=== PATIENT | female | born 1980 | race Caucasian/White ===

== ENCOUNTER 2016-09-30 17:10 | Emergency (ER) | payer SELFPAY | END 2016-09-30 20:00 | disposition left against medical advice (07) | LOC: ER 20:00 | DX: R05 Cough (principal); R06.02 Shortness of breath ==

== ENCOUNTER 2019-06-05 08:41 | Emergency (ER) | payer MEDICARE ==
[~2019-06-05] VITALS: Ht 175.3 cm; Wt 127.0 kg
[2019-06-05 09:00] VITALS: BP 160/100
[2019-06-05 09:29] LABS: BILIRUBIN,URINE NEGATIVE (NEG); CLARITY,URINE CLEAR; COLOR,URINE YELLOW; NITRITE,URINE NEGATIVE (NEG); PH,URINE 5.5; PROTEIN,URINE NEGATIVE (NEG-TRACE); UROBILINOGEN,URINE 0.2 mg/dL (0.2 mg/dL)
[2019-06-05 09:35] LABS: BACTERIA,URINE FEW /HPF (0-FEW); SQUAMOUS EPITHELIAL CELL,UR MOD /LPF; TRICHOMONAS,URINE PRESENT
[2019-06-05] MEDS ORDERED: METR500T PO (10:09)
[2019-06-05] MEDS ORDERED: CIPR250T30 PO (10:09)
--- NOTE | 2019-06-05 10:09 | PHYS DOC ---
Past Medical History Past Medical History: No Pertinent History Past Surgical History: Cholecystectomy Alcohol Use: Rarely Drug Use: None Adult General Chief Complaint Chief Complaint: ABDOMINAL PAIN HPI HPI Patient is a 39 year old female who presents with complaining of vaginal discharge. Patient states she had vaginal discharge and itching 10 days ago and took [id number] vaginitis yeast infection medication for 3 days with improvement of her condition. Patient complaining of large amount of liquid vaginal discharge for the last 5 days without itching, abdominal pain, nausea vomiting, fever and chills, urinary symptom. Patient denies sexual partner or concern for STD. Review of Systems Review of Systems Constitutional: Denies fever or chills [] Eyes: Denies change in visual acuity, redness, or eye pain [] HENT: Denies nasal congestion or sore throat [] Respiratory: Denies cough or shortness of breath [] Cardiovascular: No additional information not addressed in HPI [] GI: Denies abdominal pain, nausea, vomiting, bloody stools or diarrhea [] : Denies dysuria or hematuria [] Musculoskeletal: Denies back pain or joint pain [] Integument: Denies rash or skin lesions [] Neurologic: Denies headache, focal weakness or sensory changes [] Endocrine: Denies polyuria or polydipsia [] All other systems were reviewed and found to be within normal limits, except as documented in this note. Allergies Allergies Allergies Coded Allergies Type Severity Reaction Last Updated Verified No Known Drug Allergies 06/05/19 No Physical Exam Physical Exam Constitutional: Well developed, well nourished, mild distress, non-toxic appearance. [] HENT: Normocephalic, atraumatic. Eyes: PERRLA, EOMI, conjunctiva normal, no discharge. [] Neck: Normal range of motion, no tenderness, supple, no stridor. [] Cardiovascular:Heart rate regular rhythm, no murmur [] Lungs & Thorax: Bilateral breath sounds clear to auscultation [] Abdomen: Bowel sounds normal, soft, no tenderness, no masses, no pulsatile masses. Vaginal exam in present of retail client solutions consultant showed normal external vagina, small to moderate amount of yellow discharge in without bleeding or adnexal tenderness. Skin: Warm, dry, no erythema, no rash. [] Back: No tenderness, no CVA tenderness. [] Extremities: No tenderness, no cyanosis, no clubbing, ROM intact, no edema. [] Neurologic: Alert and oriented X 3, no focal deficits noted. [] Psychologic: Affect normal, judgement normal, mood normal. [] Current Patient Data Vital Signs Vital Signs Date Time Temp Pulse Resp B/P (MAP) Pulse Ox O2 Delivery O2 Flow Rate FiO2 06/05/19 09:00 97.7 85 18 160/100 (120) 98 Room Air 97.7 Lab Values Laboratory Tests Test 06/05/19 08:50 06/05/19 08:58 Urine Color Yellow Urine Clarity Clear Urine pH 5.5 Urine Specific Upson 1.025 Urine Protein Negative mg/dL (NEG-TRACE) Urine Glucose (UA) Negative mg/dL (NEG) Urine Ketones (Stick) Negative mg/dL (NEG) Urine Blood Small (NEG) Urine Nitrite Negative (NEG) Urine Bilirubin Negative (NEG) Urine Urobilinogen Dipstick 0.2 mg/dL (0.2 mg/dL) Urine Leukocyte Esterase Moderate (NEG) Urine RBC 3-5 /HPF (0-2) Urine WBC 11-20 /HPF (0-4) Urine Squamous Epithelial Cells Mod /LPF Urine Bacteria Few /HPF (0-FEW) Urine Mucus Mod /LPF Urine Trichomonas Present POC Urine HCG, Qualitative Hcg negative (Negative) Microbiology 06/05/19 Wet Prep - Final, Complete EKG EKG [] Radiology/Procedures Radiology/Procedures [] Course & Med Decision Making Course & Med Decision Making Pertinent Labs reviewed. (See chart for details) Evaluation of patient in ER showed 39-year-old female patient with complaining of vaginal discharge without concern for STD. Patient had negative test. UA showed UTI and wet prep showed bacterial vaginitis. I've spoken with the patient and/or caregivers. I've explained the patient's condition, diagnosis and treatment plan based on information available to me at this time. I've answered the patient's and/or caregivers questions and addressed any concerns. The patient and/or caregivers have a good understanding the patient's diagnosis, condition and treatment plan as can be expected at this point. Vital signs have been stabilized. The patient's condition is stable for discharge from the emergency department. The patient will pursue further outpatient evaluation with her primary care provider or other designated consulting physician as outlined in the discharge instructions. Patient and/or caregivers are agreeable to this plan of care and follow-up instructions have been explained in detail. The patient and/or caregivers have received these instructions in written format and expressed understanding of these discharge instructions. The patient and her caregivers are aware that if any significant change in condition or worsening of symptoms should prompt him to immediately return to this of the closest emergency department. If an emergent department is not readily available I would encourage him to call 911. Taisha Disclaimer Dragon Disclaimer This electronic medical record was generated, in whole or in part, using a voice recognition dictation system. Departure Departure Impression: Primary Impression: Bacterial infection Additional Impressions: Urinary tract infection Morbid obesity with BMI of 40.0-44.9, adult Disposition: HOME, SELF-CARE (at [facility]) Condition: STABLE Referrals: NO PCP (PCP) Patient Instructions: Cervicitis, Urinary Tract Infection Additional Instructions: Drink plenty of liquids Follow-up with your primary care physician in 3-5 days Return to ER if not getting better Scripts Metronidazole (FLAGYL) 500 Mg Tablet 4 TAB PO ONCE, #4 TAB Prov: MICAH MILLAN MD 06/05/19 Ciprofloxacin Hcl (CIPRO) 250 Mg Tablet 1 TAB PO BID for infection, #14 TAB Prov: MICAH MILLAN MD 06/05/19 Problem Qualifiers Additional Impressions: Urinary tract infection Urinary tract infection type: acute cystitis Hematuria presence: without hematuria Qualified Codes: N30.00 - Acute cystitis without hematuria MICAH MILLAN MD Jun 05, 2019 10:09
[2019-06-06 17:14] LABS: GC PROBE Negative (Negative)
== END 2019-06-05 10:40 | disposition home or self-care (01) ==
LOC: ER 08:41
DX: N30.00 Acute cystitis without hematuria (principal); A49.9 Bacterial infection, unspecified; E66.01 Morbid (severe) obesity due to excess calories; Z68.41 Body mass index [BMI] 40.0-44.9, adult; Z90.49 Acquired absence of other specified parts of digestive tract
CPT/HCPCS: 81001; 81025; 87086; 87491; 87591; 99284; Q0111

== ENCOUNTER 2019-07-30 13:21 | Emergency (ER) | payer MEDICARE ==
[~2019-07-30] VITALS: Ht 175.3 cm; Wt 127.0 kg
[~2019-07-30 13:21] MED LIST: CIPR250T30 PO; METR500T PO
[2019-07-30 13:53] VITALS: BP 166/97
[2019-07-30] MEDS ORDERED: IV NORMAL SALINE 1000ML BAG 1,000 ML IV ONE (14:30)
[2019-07-30 14:33] LABS: BASO # 0.1 x10^3/uL (0.0-0.2); BASO % 1 % (0-3); EOS # 0.2 x10^3/uL (0.0-0.7); EOS % 1 % (0-3); HEMATOCRIT 44.7 % (36.0-47.0); HEMOGLOBIN 15.3 g/dL (12.0-15.5); LYMPH # 2.2 x10^3/uL (1.0-4.8); LYMPH % 12 % (24-48); MEAN CORPUSCULAR HEMOGLOBIN 31 pg (25-35); MEAN CORPUSCULAR HGB CONC 34 g/dL (31-37); MEAN CORPUSCULAR VOLUME 90 fL (79-100); MONO # 0.8 x10^3/uL (0.0-1.1); MONO % 5 % (0-9); NEUT # 14.4 x10^3/uL (1.8-7.7); NEUT % 81 % (31-73); PLATELET COUNT 223 x10^3/uL (140-400); RED BLOOD COUNT 4.95 x10^6/uL (3.50-5.40); RED CELL DISTRIBUTION WIDTH 12.7 % (11.5-14.5); WHITE BLOOD COUNT 17.7 x10^3/uL (4.0-11.0)
[2019-07-30 14:41] LABS: CREATININE 0.7 mg/dL (0.6-1.0); GFR 94.2; POTASSIUM 4.2 mmol/L (3.5-5.1)
[2019-07-30 14:50] LABS: ALBUMIN 3.9 g/dL (3.4-5.0); ALBUMIN/GLOBULIN RATIO 1.1 (1.0-1.7); TOTAL BILIRUBIN 0.5 mg/dL (0.2-1.0); TOTAL PROTEIN 7.4 g/dL (6.4-8.2)
[2019-07-30 14:52] LABS: % BANDS 1 % (0-9); % EOS 1 % (0-5); % LYMPHS 10 % (24-48); % MONOS 2 % (0-10); % SEGS 86 % (35-66); PLT ESTIMATE ADEQUATE (ADEQUATE)
[2019-07-30 14:53] LABS: TOXIC VACUOLATION SLIGHT
[2019-07-30] MEDS ORDERED: AMOX500T PO (16:07)
--- NOTE | 2019-07-30 16:08 | PHYS DOC ---
Past Medical History Past Medical History: No Pertinent History Past Surgical History: Cholecystectomy [place] Pack Per Day Alcohol Use: Rarely Drug Use: None Adult General Chief Complaint Chief Complaint: SORE THROAT [facility] HPI Patient is a 39 year old [ female who presents to the emergency department with complaints of body aches, fatigue, fever, and feeling lightheaded/dizzy with position changes for the last 5 days. Patient states that today she developed a sore throat. She denies any nausea, vomiting, or diarrhea in the last 24 hours but states that she did have nausea, vomiting, and diarrhea 3 days ago. Patient denies any shortness breath, wheezing, chest pain, palpitations, numbness, tingling, weakness, or vision changes. She does state that she has a headache that she describes as diffuse pressure. She currently rates her discomfort an 8 out of 10 on the pain scale she denies any alleviating factors. All other ROS is neg unless otherwise noted in HPI. Review of Systems Review of Systems See Above Current Medications Current Medications Current Medications Medications (Trade) Dose Ordered Sig/Nikita Start Time Stop Time Status Last Admin Dose Admin Sodium Chloride 1,000 ml @ 1,000 mls/hr 1X ONCE 07/30/19 14:30 07/30/19 15:29 DC 07/30/19 14:59 1,000 MLS/HR Allergies Allergies Allergies Coded Allergies Type Severity Reaction Last Updated Verified No Known Drug Allergies 06/05/19 No Physical Exam Physical Exam See Above Constitutional: Well developed, well nourished, no acute distress, non-toxic appearance obese. [] HENT: Normocephalic, atraumatic, bilateral external ears normal, bilateral TMs normal, 2+ tonsils bilaterally with exudate noted, moderate erythema posterior pharynx, oropharynx moist, nose normal. [] Eyes: PERRLA, EOMI, conjunctiva normal, no discharge. [] Neck: Normal range of motion, anterior cervical chain lymphadenopathy bilaterally with tenderness to palpation, no stridor. [] Cardiovascular:Heart rate regular rhythm, no murmur [] Lungs & Thorax: Bilateral breath sounds clear to auscultation, Respirations even and unlabored, no retractions, no respiratory distress [] Abdomen: Bowel sounds normal, soft, no tenderness, no masses, no pulsatile masses. [] Skin: Warm, dry, no erythema, no rash. [] Back: No CVA tenderness. [] Extremities: No cyanosis, ROM intact, no edema. [] Neurologic: Alert and oriented X 3, no focal deficits noted. [] Psychologic: Affect normal, judgement normal, mood normal. [] Current Patient Data Vital Signs Vital Signs Date Time Temp Pulse Resp B/P (MAP) Pulse Ox O2 Delivery O2 Flow Rate FiO2 07/30/19 13:53 98.5 98 20 166/97 (120) 100 Room Air 98.5 Lab Values Laboratory Tests Test 07/30/19 14:15 07/30/19 14:27 Group A Streptococcus Rapid Positive (NEGATIVE) White Blood Count 17.7 x10^3/uL (4.0-11.0) H Red Blood Count 4.95 x10^6/uL (3.50-5.40) Hemoglobin 15.3 g/dL (12.0-15.5) Hematocrit 44.7 % (36.0-47.0) Mean Corpuscular Volume 90 fL (79-100) Mean Corpuscular Hemoglobin 31 pg (25-35) Mean Corpuscular Hemoglobin Concent 34 g/dL (31-37) Red Cell Distribution Width 12.7 % (11.5-14.5) Platelet Count 223 x10^3/uL (140-400) Neutrophils (%) (Auto) 81 % (31-73) H Lymphocytes (%) (Auto) 12 % (24-48) L Monocytes (%) (Auto) 5 % (0-9) Eosinophils (%) (Auto) 1 % (0-3) Basophils (%) (Auto) 1 % (0-3) Neutrophils # (Auto) 14.4 x10^3/uL (1.8-7.7) H Lymphocytes # (Auto) 2.2 x10^3/uL (1.0-4.8) Monocytes # (Auto) 0.8 x10^3/uL (0.0-1.1) Eosinophils # (Auto) 0.2 x10^3/uL (0.0-0.7) Basophils # (Auto) 0.1 x10^3/uL (0.0-0.2) Segmented Neutrophils % 86 % (35-66) H Band Neutrophils % 1 % (0-9) Lymphocytes % 10 % (24-48) L Monocytes % 2 % (0-10) Eosinophils % 1 % (0-5) Toxic Vacuolation Slight Platelet Estimate Adequate (ADEQUATE) Large Platelets Occ Sodium Level 139 mmol/L (136-145) Potassium Level 4.2 mmol/L (3.5-5.1) Chloride Level 105 mmol/L (98-107) Carbon Dioxide Level 24 mmol/L (21-32) Anion Gap 10 (6-14) Blood Urea Nitrogen 12 mg/dL (7-20) Creatinine 0.7 mg/dL (0.6-1.0) Estimated GFR (Cockcroft-Gault) 94.2 BUN/Creatinine Ratio 17 (6-20) Glucose Level 95 mg/dL (70-99) Calcium Level 9.0 mg/dL (8.5-10.1) Total Bilirubin 0.5 mg/dL (0.2-1.0) Aspartate Amino Transferase (AST) 26 U/L (15-37) Alanine Aminotransferase (ALT) 39 U/L (14-59) Alkaline Phosphatase 60 U/L (46-116) Total Protein 7.4 g/dL (6.4-8.2) Albumin 3.9 g/dL (3.4-5.0) Albumin/Globulin Ratio 1.1 (1.0-1.7) Laboratory Tests 07/30/19 14:27 Laboratory Tests 07/30/19 14:27 EKG EKG [] Radiology/Procedures Radiology/Procedures Rapid strep positive[] Course & Med Decision Making Course & Med Decision Making Pertinent Labs and Imaging studies reviewed. (See chart for details) Patient is a 39-year-old female who presented to the emergency room with complaints of body aches, fatigue, fever, feeling lightheaded, and a sore throat. Rapid strep was positive. The patient was given a liter of normal saline in the emergency department she reported feeling better after these fluids. CBC revealed an elevated white blood cell count of 17.7 with 81% neutrophils, 12% lymphocytes; CMP was within normal limits. Prescription was written for amoxicillin 500 mg by mouth twice a day 10 days, strep instructions given. Patient verbalized an understanding of home care, medications, follow-up, and return to ED instructions and was in agreement with the plan of care. [] Dragon Disclaimer Dragon Disclaimer This electronic medical record was generated, in whole or in part, using a voice recognition dictation system. Departure Departure Impression: Primary Impression: Acute streptococcal pharyngitis Disposition: HOME, SELF-CARE Condition: STABLE Referrals: NO PCP (PCP) Patient Instructions: Strep Throat, [id number] Additional Instructions: Fill prescription and use as directed. Recommend warm salt water gargles as needed for relief of discomfort. Alternate Tylenol and ibuprofen as needed for fever/pain. Discard your toothbrush tomorrow and begin using a new toothbrush. Follow-up with primary care doctor if symptoms persist. Return to the ER if symptoms worsen. Scripts Amoxicillin (AMOXICILLIN) 500 Mg Tablet 1 TAB PO BID for 10 Days, #20 TAB 0 Refills Prov: LEONEL UNDERWOOD APRN 07/30/19 LEONEL UNDERWOOD BARROW WORKER HELPER Jul 30, 2019 16:08
== END 2019-07-30 16:35 | disposition home or self-care (01) ==
LOC: ER 13:21
DX: J02.0 Streptococcal pharyngitis (principal); B95.0 Streptococcus, group A, as the cause of diseases classified elsewhere; R42 Dizziness and giddiness; F17.200 Nicotine dependence, unspecified, uncomplicated
CPT/HCPCS: 36415; 80053; 85007; 85025; 87880; 96360; 99284; J7030

== ENCOUNTER 2020-08-04 16:12 | Emergency (ER) | payer MEDICARE, OTHER ==
[~2020-08-04] VITALS: Ht 177.8 cm; Wt 130.0 kg
[~2020-08-04 16:12] MED LIST changes: +AMOX500T PO
[2020-08-04 16:47] VITALS: BP 149/79
[2020-08-04] MEDS ORDERED: CYCL10TA2 PO (17:13)
--- NOTE | 2020-08-04 17:15 | ED.ADGEN ---
Past Medical History Past Medical History: No Pertinent History Past Surgical History: Cholecystectomy Smoking Status: Current Every Day Smoker Alcohol Use: None Drug Use: None General Adult EDM: Chief Complaint: LOWER EXT PAIN HPI: HPI: Patient is a 40 year old female who presents emergency department with complaints of pain in her right buttock that goes down her right leg with movement since yesterday. Patient denies any numbness, tingling, or weakness of her right lower extremity. She denies any recent falls or trauma. Patient states she is currently , almost 34 weeks. Her last menstrual cycle was on December 01, 2019 and her due date is September 16, 2020. She is 4, para 3; with 3 term births and 2 living children. Patient states she has history of 1 previous stillborn child at term. She sees high risk criminalist Willi Blair who advised her to come to the emergency room. Patient denies any swelling in the legs, shortness of breath, fever, cough, abdominal pain, dysuria, hematuria, back pain, nausea, or vomiting. She reports lots of movement today. She currently rates her pain a 4 out of 10 on the pain scale, the pain increases to a 10 with movement of her right leg. She states that the only thing that helps the pain is to rest. Review of Systems: Review of Systems: Complete ROS is negative unless otherwise noted in HPI. Allergies: Allergies: Allergies Coded Allergies Type Severity Reaction Last Updated Verified No Known Drug Allergies 06/05/19 No Physical Exam: PE: See Above Constitutional: Well developed, well nourished, no acute distress, non-toxic appearance. [] HENT: Normocephalic, atraumatic, bilateral external ears normal, nose normal. [] Eyes: PERRLA, EOMI, conjunctiva normal, no discharge. [] Neck: Normal range of motion, no stridor. [] Cardiovascular:Heart rate regular rhythm Lungs & Thorax: Respirations even and unlabored, no retractions, no respiratory distress Abdomen: firm, no tenderness, palpable movements, FHT's 150's Skin: Warm, dry, no erythema, no rash. [] Back: no bony TTP; TTP over head of piriformis, increased pain with right straight leg lift. Extremities: BLE:No cyanosis, ROM intact, no edema. [] Neurologic: Alert and oriented X 3, no focal deficits noted. [] Psychologic: Affect normal, judgement normal, mood normal. [] Current Patient Data: Vital Signs: Vital Signs Date Time Temp Pulse Resp B/P (MAP) Pulse Ox O2 Delivery O2 Flow Rate FiO2 08/04/20 16:47 98.2 98 18 149/79 (102) 97 Room Air 98.2 EKG: EKG: [] Heart Score: Risk Factors: Risk Factors: DM, Current or recent (<one month) smoker, HTN, HLP, family history of CAD, obesity. Risk Scores: Score 0 - 3: 2.5% MACE over next 6 weeks - Discharge Home Score 4 - 6: 20.3% MACE over next 6 weeks - Admit for Clinical Observation Score 7 - 10: 72.7% MACE over next 6 weeks - Early Invasive Strategies Radiology/Procedures: Radiology/Procedures: [] Course & Med Decision Making: Course & Med Decision Making Pertinent Labs and Imaging studies reviewed. (See chart for details) 1700- Spoke with Dr. Alan about patient. Will treat sciatica/piriformis syndrome with Flexeril and have patient follow up with her high school english teacher Dr. Blair in 1-2 days. [] Dragon Disclaimer: Dragon Disclaimer: This electronic medical record was generated, in whole or in part, using a voice recognition dictation system. Departure Departure Impression: Primary Impression: Piriformis syndrome of right side Additional Impressions: Sciatica of right side Back pain affecting in third trimester Disposition: 01 DC HOME SELF CARE/HOMELESS Condition: STABLE Referrals: NO PCP (PCP) Patient Instructions: Back Pain in , Sciatica, [id number] Additional Instructions: Fill the prescription and use it as directed. Activity as tolerated. Follow-up with Dr. Blair your criminalist in 1 to 2 days, return to the ER if symptoms worsen or fever develops. Scripts Cyclobenzaprine Hcl (CYCLOBENZAPRINE HCL) 10 Mg Tablet 1 TAB PO TID PRN for SEVERE PAIN 7-10 for 10 Days, #30 TAB 0 Refills Prov: LEONEL UNDERWOOD DRILL GRINDER 08/04/20 Attending Signature Attending Signature I have reviewed the PA/EMERGENCY MEDICAL TECH's note and plan of care. I was available for consultation as needed during the patient's visit in the emergency department. I agree with the clinical impression, plan, and disposition. Problem Qualifiers LEONEL UNDERWOOD APRN Aug 04, 2020 17:15 PAULA ALARCON DO Aug 04, 2020 17:52
== END 2020-08-04 17:37 | disposition home or self-care (01) ==
LOC: ER 16:12
DX: O99.891 Other specified diseases and conditions complicating pregnancy (principal); G57.01 Lesion of sciatic nerve, right lower limb; M54.41 Lumbago with sciatica, right side; O99.333 Smoking (tobacco) complicating pregnancy, third trimester; Z3A.33 33 weeks gestation of pregnancy; Z90.49 Acquired absence of other specified parts of digestive tract
CPT/HCPCS: 99284